=== PATIENT | female | born 1990 | race American Indian/Alaskan Native ===

== ENCOUNTER 2017-06-15 13:29 | Emergency (ER) | payer MEDICAID ==
[2017-06-15 13:45] VITALS: O2SAT 100
[2017-06-15] MEDS ORDERED: Sodium Chloride 0.9% 1,000 ML IV ONE (13:57)
[2017-06-15 14:14] LABS: BASO % 0.5 % (0.0-2.0); EOS % 0.4 % (0.0-4.0); HEMATOCRIT 37.5 % (34.0-47.0); LYMPH # 1.9 K/uL (1.0-4.3); LYMPH % 32.7 % (20.0-40.0); MEAN CELL VOLUME 86.6 fL (81.0-99.0); MEAN CORPUSCULAR HEMOGLOBIN 28.8 pg (27.0-31.0); MEAN CORPUSCULAR HGB CONC 33.3 g/dL (33.0-37.0); MEAN PLATELET VOLUME 8.9 fL (7.2-11.7); MONO # 0.4 K/uL (0.0-0.8); MONO % 7.5 % (0.0-10.0); NRBC % 0.1 % (0.0-2.0); RED CELL DISTRIBUTION WIDTH 16.4 % (11.5-14.5); WHITE BLOOD COUNT 5.8 K/uL (4.8-10.8)
[2017-06-15] MEDS ORDERED: Sodium Chloride 0.9% 1,000 ML ONE (14:18)
[2017-06-15 14:27] LABS: CHLORIDE 106 mmol/L (98-107)
[2017-06-15 14:28] LABS: POTASSIUM 3.6 mmol/L (3.6-5.2); SODIUM 143 mmol/L (132-148)
[2017-06-15 14:29] LABS: RBC URINE 842 /hpf (0-3); URINE BILIRUBIN NEGATIVE (NEGATIVE); URINE BLOOD 3+ (NEGATIVE); URINE COLOR Red (YELLOW); URINE GLUCOSE (UA) NORMAL (Normal); URINE KETONE 1+ mg/dL (NEGATIVE); URINE LEUKOCYTE ESTERASE NEG Leu/uL (Negative); URINE PROTEIN 2+ mg/dL (NEGATIVE); URINE UROBILINOGEN NORMAL mg/dL (0.2-1.0); WBC URINE 7 /hpf (0-5)
[2017-06-15 14:30] LABS: ALB/GLOB RATIO 1.1 (1.0-2.1); AST/SGOT 16 U/L (14-36); BILIRUBIN,TOTAL 0.4 mg/dL (0.2-1.3); BLOOD UREA NITROGEN 11 mg/dL (7-17); CARBON DIOXIDE 21 mmol/L (22-30); GFR AFRICAN-AMERICAN > 60; GLUCOSE,RANDOM 92 mg/dL (65-105); TOTAL PROTEIN 8.1 g/dL (6.3-8.3)
[2017-06-15 14:31] LABS: ALKALINE PHOSPHATASE 60 U/L (38-126); ALT/SGPT 22 U/L (9-52); CALCIUM 10.1 mg/dl (8.6-10.4)
--- NOTE | 2017-06-15 15:55 | US ---
HISTORY: Left pelvic pain, vaginal bleeding. COMPARISON: None available. TECHNIQUE: Real-time transabdominal pelvic ultrasound was performed. In addition a transvaginal pelvic ultrasound was necessary to better depict pelvic anatomy. FINDINGS: UTERUS: Measures 7.4 x 3.4 x 4.3 cm. Anteverted. Prominent vasculature noted about the periphery of the uterus. ENDOMETRIUM: Measures 4 mm in diameter. CERVIX: No cervical abnormality identified. RIGHT OVARY: Measures 2.9 x 1.6 x 2.6 cm. Blood flow is demonstrated. LEFT OVARY: Measures 3.2 x 1.5 x 2.7 cm. Blood flow is demonstrated. FREE FLUID: No significant free fluid noted. OTHER FINDINGS: None. IMPRESSION: Prominent vasculature noted about the periphery of the uterus.
--- NOTE | 2017-06-15 16:15 | C.PDOC ---
Time Seen by Provider: 06/15/17 13:48 Chief Complaint (Nursing): Female Genitourinary History Per: Patient Onset/Duration Of Symptoms: Days (about 2 weeks), Waxing/Waning Current Symptoms Are (Timing): Still Present Severity: Moderate Location Of Pain/Discomfort: LLQ, Suprapubic Quality Of Discomfort: "Pain" Exacerbating Factors: None Alleviating Factors: None Additional History Per: Prior Records Abnormal Vaginal Bleeding: Yes Past Medical History Reviewed: Historical Data, Nursing Documentation, Vital Signs Vital Signs: Last Vital Signs Temp 99.7 F H 06/15/17 13:35 Pulse 96 H 06/15/17 13:35 Resp 18 06/15/17 13:35 BP 105/62 06/15/17 13:35 Pulse Ox 100 06/15/17 13:35 - Medical History PMH: Anxiety, Asthma, Bipolar Disorder, Depression, Personality Disorder, Post Traumatic Stress Disorder Surgical History: No Surg Hx Family History: States: Unknown Family Hx - Social History Hx Tobacco Use: Yes Hx Alcohol Use: No Hx Substance Use: Yes ("weed use on occasions") - Immunization History Hx Tetanus Toxoid Vaccination: No Hx Influenza Vaccination: Yes (2014) Hx Pneumococcal Vaccination: No Review Of Systems Except As Marked, All Systems Reviewed And Found Negative. Constitutional: Negative for: Fever, Weakness Cardiovascular: Negative for: Chest Pain Respiratory: Negative for: Shortness of Breath Gastrointestinal: Negative for: Vomiting, Diarrhea Genitourinary: Positive for: Vaginal Bleeding, Pelvic Pain. Negative for: Dysuria Musculoskeletal: Positive for: Back Pain. Negative for: Neck Pain Skin: Negative for: Rash Neurological: Negative for: Weakness, Numbness Psych: Positive for: Anxiety. Negative for: Psychosis, Suicidal ideation Physical Exam - Physical Exam Appears: Non-toxic, No Acute Distress Skin: Normal Color, Warm, Dry, No Rash Head: Atraumatic, Normacephalic Eye(s): bilateral: Normal Inspection, PERRL, EOMI Neck: Normal ROM, Supple Cardiovascular: Rhythm Regular Respiratory: Normal Breath Sounds, No Accessory Muscle Use Gastrointestinal/Abdominal: Soft, Tenderness (LLQ), No Guarding, No Rebound Extremity: Normal ROM Neurological/Psych: Oriented x3, Normal Motor, Normal Sensation ED Course And Treatment - Laboratory Results Result Diagrams: 06/15/17 14:10 06/15/17 14:10 Lab Interpretation: No Acute Changes Urine POC: Negative O2 Sat by Pulse Oximetry: 100 Pulse Ox Interpretation: Normal - CT Scan/US Pelvic US Other Rad Studies (CT/US): Read By Radiologist, Radiology Report Reviewed CT/US Interpretation: IMPRESSION: Prominent vasculature noted about the periphery of the uterus. Progress - Interventions Interventions:: Observation, Intravenous fluid - Medications Administered Intravenous: NSAID - Data Reviewed Data Reviewed: Lab, Diagnostic imaging, Old records - Patient Status Patient status: Mostly improved - Continuity of Care Discussed patient case with:: Patient, Family-HIPPA compliant, ED Nurse - Patient Plan Patient Plan: Discharge, F/U with PCP Disposition Counseled Patient/Family Regarding: Studies Performed, Diagnosis, Need For Followup, Rx Given - Disposition Disposition: HOME/ ROUTINE Disposition Time: 16:16 Condition: IMPROVED Additional Instructions: Follow up with your Automotive Technician Instructor within 1-2 weeks for further evaluation and treatment. Return to the ER if you develop fever, vomiting, dizziness, worsening of symptoms or if you have any other concerns. Prescriptions: Ibuprofen [Motrin Tab] 600 mg PO TID PRN #30 tab PRN Reason: Pain, Moderate (4-7) MedroxyPROGESTERone [Provera] 1 tab PO DAILY #10 tab Instructions: Dysfunctional Uterine Bleeding (ED) Forms: [employer] (Faroese) - Clinical Impression Clinical Impression: DUB (dysfunctional uterine bleeding)
[2017-06-15 16:27] VITALS: BP 112/74; PULSE 68; RESP 20; TEMP 98.5
== END 2017-06-15 16:28 | disposition home or self-care (01) ==
LOC: C.ER 13:29
DX: N93.8 Other specified abnormal uterine and vaginal bleeding (principal)
CPT/HCPCS: 76830; 76856; 80053; 81001; 83690; 84702; 84703; 85025; 96361; 96374; 99284; J1885; J7040

== ENCOUNTER 2018-09-27 09:49 | Emergency (ER) | payer MEDICAID, OTHER ==
[2018-09-27 09:50] VITALS: BMI 23.9
[2018-09-27 09:58] VITALS: RESP 18; O2SAT 100
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
[2018-09-27 10:57] LABS: EOS % 0.6 % (0.0-4.0); HEMOGLOBIN 12.8 g/dL (11.0-16.0); LYMPH # 2.1 K/uL (1.0-4.3); LYMPH % 45.6 % (20.0-40.0); MEAN CELL VOLUME 91.9 fL (81.0-99.0); MEAN CORPUSCULAR HEMOGLOBIN 30.5 pg (27.0-31.0); MEAN CORPUSCULAR HGB CONC 33.2 g/dL (33.0-37.0); MEAN PLATELET VOLUME 9.6 fL (7.2-11.7); MONO # 0.3 K/uL (0.0-0.8); MONO % 6.7 % (0.0-10.0); NEUT # 2.1 K/uL (1.8-7.0); NEUT % 46.1 % (50.0-75.0); NRBC % 0.1 % (0.0-2.0); RBC 4.2 Mil/uL (3.80-5.20); RED CELL DISTRIBUTION WIDTH 14.9 % (11.5-14.5); WHITE BLOOD COUNT 4.5 K/uL (4.8-10.8)
[2018-09-27 11:01] LABS: SQUAMOUS EPITHIAL 5 /hpf (0-5); URINE BACTERIA RARE (<OCC); URINE BILIRUBIN NEGATIVE (NEGATIVE); URINE BLOOD NEGATIVE (NEGATIVE); URINE CLARITY Clear (Clear); URINE COLOR Yellow (YELLOW); URINE GLUCOSE (UA) NORMAL (Normal); URINE LEUKOCYTE ESTERASE NEG Leu/uL (Negative); URINE PROTEIN NEGATIVE (NEGATIVE); URINE UROBILINOGEN NORMAL mg/dL (0.2-1.0)
[2018-09-27 11:11] LABS: ACETAMINOPHEN < 10.0 ug/mL (10.0-30.0); SALICYLATE 3.5 mg/dL 1
[2018-09-27 11:16] LABS: ALB/GLOB RATIO 1.4 (1.0-2.1); ALBUMIN 4.8 g/dL (3.5-5.0); ALT/SGPT 23 U/L (9-52); AST/SGOT 21 U/L (14-36); BLOOD UREA NITROGEN 10 mg/dL (7-17); CALCIUM 9.6 mg/dl (8.6-10.4); GFR NON-AFRICAN AMERICAN > 60
[2018-09-27 11:22] LABS: BARBITURATES, UR NEGATIVE (NEGATIVE); BENZODIAZEPINES, UR NEGATIVE (NEGATIVE); OPIATES, UR NEGATIVE (NEGATIVE); PHENCYCLIDINE, UR NEGATIVE (NEGATIVE)
[2018-09-27 12:06] VITALS: BP 110/70; PULSE 62; TEMP 98.5
--- NOTE | 2018-09-27 14:39 | RAD ---
Date of service: 09/27/2018 HISTORY: Detox COMPARISON: No prior. TECHNIQUE: Chest PA and lateral FINDINGS: LINES AND TUBES: None. LUNG AND PLEURA: The lungs are well inflated and clear. No pleural effusion or pneumothorax. HEART AND MEDIASTINUM: The heart is not enlarged. No aortic atherosclerotic calcification present. The hilar and mediastinal contours are within normal limits. SKELETAL STRUCTURES: The bony structures are within normal limits for the patient's age. VISUALIZED UPPER ABDOMEN: Normal. OTHER FINDINGS: None. IMPRESSION: No active pulmonary disease.
--- NOTE | 2018-09-28 23:58 | CARD ---
APPROVED REPORT Date of service: 09/27/2018 EKG Measurement Heart [id number] <Conclusion> Normal sinus rhythm with sinus arrhythmia Nonspecific T wave abnormality Abnormal ECG
== END 2018-09-27 12:21 | disposition home or self-care (01) ==
LOC: C.ER 09:49
DX: F41.9 Anxiety disorder, unspecified (principal); Z72.0 Tobacco use

== ENCOUNTER 2018-10-31 22:09 | Emergency (ER) | payer OTHER ==
[2018-10-31 22:10] VITALS: BMI 23.9
[2018-10-31 22:12] VITALS: TEMP 99.2
[2018-10-31] MEDS ORDERED: Sodium Chloride 0.9% 1,000 ML IV ONE (23:21)
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
[2018-10-31] MEDS ORDERED: Sodium Chloride 0.9% 1,000 ML ONE (23:57)
[2018-11-01 00:24] LABS: BASO % 0.3 % (0.0-2.0); EOS % 0.1 % (0.0-4.0); LYMPH # 2.2 K/uL (1.0-4.3); LYMPH % 34.3 % (20.0-40.0); MEAN CELL VOLUME 91.2 fL (81.0-99.0); MEAN CORPUSCULAR HGB CONC 32.9 g/dL (33.0-37.0); MEAN PLATELET VOLUME 9.3 fL (7.2-11.7); MONO # 0.3 K/uL (0.0-0.8); MONO % 4.9 % (0.0-10.0); NEUT # 3.8 K/uL (1.8-7.0); NEUT % 60.4 % (50.0-75.0); RBC 3.99 Mil/uL (3.80-5.20); RED CELL DISTRIBUTION WIDTH 14.2 % (11.5-14.5); WHITE BLOOD COUNT 6.3 K/uL (4.8-10.8)
[2018-11-01 00:40] LABS: ALB/GLOB RATIO 1.5 (1.0-2.1); ALBUMIN 4.8 g/dL (3.5-5.0); ALT/SGPT 32 U/L (9-52); AST/SGOT 22 U/L (14-36); BLOOD UREA NITROGEN 12 mg/dL (7-17); CALCIUM 9.4 mg/dl (8.6-10.4); GFR NON-AFRICAN AMERICAN > 60
[2018-11-01 00:41] LABS: SQUAMOUS EPITHIAL 3 /hpf (0-5); URINE BILIRUBIN NEGATIVE (NEGATIVE); URINE BLOOD NEGATIVE (NEGATIVE); URINE CLARITY Clear (Clear); URINE COLOR Yellow (YELLOW); URINE GLUCOSE (UA) NORMAL (Normal); URINE LEUKOCYTE ESTERASE NEG Leu/uL (Negative); URINE PROTEIN NEGATIVE (NEGATIVE); URINE UROBILINOGEN NORMAL mg/dL (0.2-1.0)
[2018-11-01 01:24] LABS: BARBITURATES, UR NEGATIVE (NEGATIVE); BENZODIAZEPINES, UR NEGATIVE (NEGATIVE); OPIATES, UR NEGATIVE (NEGATIVE); PHENCYCLIDINE, UR NEGATIVE (NEGATIVE)
[2018-11-01 02:36] VITALS: BP 110/70; PULSE 70; RESP 14; O2SAT 97
--- NOTE | 2018-11-01 06:56 | CT ---
Date of service: 11/01/2018 PROCEDURE: CT HEAD WITHOUT CONTRAST. HISTORY: Headache. COMPARISON: None available. TECHNIQUE: Axial computed tomography images were obtained through the head/brain without intravenous contrast. Radiation dose: Total exam DLP = 1062.11 mGy-cm. This CT exam was performed using one or more of the following dose reduction techniques: Automated exposure control, adjustment of the mA and/or kV according to patient size, and/or use of iterative reconstruction technique. FINDINGS: HEMORRHAGE: No intracranial hemorrhage. BRAIN: No mass effect or edema. No atrophy or chronic microvascular ischemic changes. VENTRICLES: Unremarkable. No hydrocephalus. CALVARIUM: Unremarkable. PARANASAL SINUSES: Unremarkable as visualized. No significant inflammatory changes. MASTOID AIR CELLS: Unremarkable as visualized. No inflammatory changes. OTHER FINDINGS: None. IMPRESSION: No acute intracranial abnormality. If symptoms persists, consider correlation with MRI. A preliminary report was generated at 1:25 a.m. on 11/01/[address] Arley Quan from [employer].
== END 2018-11-01 02:20 | disposition home or self-care (01) ==
LOC: C.ER 22:09
DX: R51 Headache (principal); Z72.0 Tobacco use
CPT/HCPCS: 70450; 80053; 80320; 80324; 80345; 80346; 80349; 80353; 80358; 80361; 81001; 81025; 83992; 85025; 96374; 96375; 99285; J1885; J2765; J7030

== ENCOUNTER 2018-11-21 13:36 | Emergency (ER) | payer OTHER ==
[2018-11-21 13:37] VITALS: BMI 24.0
[2018-11-21 13:39] VITALS: BP 112/72; PULSE 84; TEMP 98.6; O2SAT 100
[2018-11-21 14:21] VITALS: RESP 18
--- NOTE | 2018-11-21 14:57 | C.PDOC ---
History Of Present Illness 28 year old female w/PMHx bipolar, PTSD, anxiety, is brought to the ED by ambulance for evaluation of upper back pain, chest pain, bilateral shoulder pain that gradually developed after she received a depo shot yesterday, "have really bad reaction to Deposhot". Patient reports she has been applying Bengay cream to the areas with some relief. Over the past few hours, patient developed shortness of breath and states her back pain became worse. Pt denies recent illness, fever, chills, headache, dizziness, visual changes, neck pain, dyspnea, palpitations, diaphoresis, denies extremity numbness/weakness, denies previous history of cardiac or lung disease. AT present time, appears slightly anxious. Time Seen by Provider: 11/21/18 13:42 Chief Complaint (Nursing): Medical Clearance History Per: Patient History/Exam Limitations: no limitations Onset/Duration Of Symptoms: Hrs, Gradual Current Symptoms Are (Timing): Worse Additional History Per: Patient Past Medical History Reviewed: Historical Data, Nursing Documentation, Vital Signs Vital Signs: Last Vital Signs Temp 98.6 F 11/21/18 13:39 Pulse 84 11/21/18 13:39 Resp 18 11/21/18 14:17 BP 112/72 11/21/18 13:39 Pulse Ox 100 11/21/18 13:39 - Medical History PMH: Anxiety, Asthma, Bipolar Disorder, Depression, Personality Disorder, Post Traumatic Stress Disorder Denies: Diabetes, Hepatitis, HIV, HTN, Chronic Kidney Disease, Seizures, Se xually Transmitted Disease Surgical History: No Surg Hx Family History: States: Unknown Family Hx - Social History Hx Tobacco Use: Yes Hx Alcohol Use: No Hx Substance Use: Yes (DENIES 11/21/18) - Immunization History Hx Tetanus Toxoid Vaccination: No Hx Influenza Vaccination: Yes (2014) Hx Pneumococcal Vaccination: No Review Of Systems Constitutional: Negative for: Fever, Chills, Other (diaphoresis ) Cardiovascular: Positive for: Chest Pain. Negative for: Palpitations Respiratory: Positive for: Shortness of Breath Musculoskeletal: Positive for: Shoulder Pain (bilateral ), Back Pain (upper) Neurological: Negative for: Weakness, Numbness Physical Exam - Physical Exam Appears: Well, Non-toxic, No Acute Distress Skin: Normal Color, Warm, Dry Head: Normacephalic Eye(s): bilateral: PERRL Oral Mucosa: Moist Neck: Trachea Midline, Supple Chest: Symmetrical, No Deformity, Tenderness (diffuse, to anterior chest wall ) Cardiovascular: Rhythm Regular, No Murmur, No JVD, Other ((-) carotid bruits B/L) Respiratory: No Decreased Breath Sounds, No Accessory Muscle Use, No Rales, No Rhonchi, No Stridor, No Wheezing Gastrointestinal/Abdominal: Soft, No Tenderness, No Distention, No Guarding Back: No Vertebral Tenderness, No Paraspinal Tenderness, Other (reproducible tenderness to bilateral periscapular area ) Extremity: Normal ROM, No Pedal Edema, Capillary Refill (less than 2 seconds ), No Swelling Neurological/Psych: Oriented x3, Normal Speech, Normal Cognition, Normal Motor, Normal Sensation, Normal Reflexes ED Course And Treatment ECG: Interpreted By Me, Viewed By Me ECG Rhythm: Sinus Rhythm Interpretation Of ECG: Normal Sinus Rhythm at rate 65bpm. Rate From EC O2 Sat by Pulse Oximetry: 100 (on RA ) Pulse Ox Interpretation: Normal Progress Note: CXR and EKG ordered and reviewed. CXR results are unremarkable. Valium PO given. On re-eval, pt reports " feels much better". Pt is afebrile, henodynamical stable. non-toxic. PulseOx 100% RA. ENT: no acute finidngs. uvual midline, no edema. neck: Supple, (-) carotid bruits B/L, (-) JVD. Lungs: CTA B/L, BS equal B/L. CVS: (+)S1S2, reg. ABd: benign, (-) guaridng, (-) rebound. EKG, CXR review and appears without acute abnormalities. Pt has lcinical findings c/w diffuse upper chest/ upper back muscle pain s/p Depo shot. Pt advised. ref. to f/u with PMD, FINE WIRE DRAWER, Card in 2-3 days for re-eval. return to ED at any time if any worsening or new changes. Pt understand and stable for discharge now. Disposition Counseled Patient/Family Regarding: Studies Performed, Diagnosis, Need For Followup - Disposition Referrals: [facility] [Outside] Disposition: HOME/ ROUTINE Disposition Time: 14:50 Condition: STABLE Additional Instructions: LIght duty Follow up with PMD, FINE WIRE DRAWER In 2-3 days for re-evaluation. return if any new changes. Instructions: Muscle Strain (DC), Chest Pain (DC) Forms: [employer] (Serbian) - Clinical Impression Clinical Impression: Upper back pain, Chest pain - PA / OCC MED PHYSICIAN / Resident Statement MD/DO has reviewed & agrees with the documentation as recorded. - Scribe Statement The provider has reviewed the documentation as recorded by the Scribe (Hailey Aparicio) All medical record entries made by the Scribe were at my direction and personally dictated by me. I have reviewed the chart and agree that the record accurately reflects my personal performance of the history, physical exam, medical decision making, and the department course for this patient. I have also personally directed, reviewed, and agree with the discharge instructions and disposition.
--- NOTE | 2018-11-22 10:57 | RAD ---
HISTORY: Cough COMPARISON: None available. TECHNIQUE: Chest PA and lateral FINDINGS: LUNGS: No focal consolidation. Please note that chest x-ray has limited sensitivity for the detection of pulmonary masses. PLEURA: No significant pleural effusion identified. No definite pneumothorax . CARDIOVASCULAR: Heart size appears within normal limits. No atherosclerotic calcification present. OSSEOUS STRUCTURES: No acute osseous abnormality identified. VISUALIZED UPPER ABDOMEN: Unremarkable. OTHER FINDINGS: None. IMPRESSION: No focal consolidation.
--- NOTE | 2018-11-26 23:42 | CARD ---
APPROVED REPORT Date of service: 11/21/2018 EKG Measurement Heart [id number] [id number] <Conclusion> Normal sinus rhythm with sinus arrhythmia Nonspecific ST and T wave abnormality Abnormal ECG
== END 2018-11-21 15:16 | disposition home or self-care (01) ==
LOC: C.ER 13:36
DX: M54.89 Other dorsalgia (principal); R07.9 Chest pain, unspecified

== ENCOUNTER 2018-12-22 15:11 | Emergency (ER) | payer OTHER ==
[2018-12-22 15:26] VITALS: TEMP 98.2
[2018-12-22 15:28] VITALS: BMI 23.9
[2018-12-22] MEDS ORDERED: Iodixanol 320 MG/ML 100 ML BOTTLE IV ONE (15:47)
--- NOTE | 2018-12-22 15:52 | RAD ---
Date of service: 12/22/2018 HISTORY: sob COMPARISON: Comparison chest dated 11/21/2018. TECHNIQUE: Chest PA and lateral FINDINGS: LUNGS: No active pulmonary disease. PLEURA: No significant pleural effusion identified. No pneumothorax apparent. CARDIOVASCULAR: No aortic atherosclerotic calcification present. Normal cardiac size. No pulmonary vascular congestion. OSSEOUS STRUCTURES: No significant abnormalities. VISUALIZED UPPER ABDOMEN: Normal. OTHER FINDINGS: None. IMPRESSION: No active disease.
[2018-12-22 16:02] LABS: BASO # 0.1 K/uL (0.0-0.2); BASO % 1.1 % (0.0-2.0); EOS % 0.3 % (0.0-4.0); HEMOGLOBIN 11.9 g/dL (11.0-16.0); LYMPH # 2.6 K/uL (1.0-4.3); LYMPH % 41.9 % (20.0-40.0); MEAN CELL VOLUME 88.2 fL (81.0-99.0); MEAN CORPUSCULAR HEMOGLOBIN 29.6 pg (27.0-31.0); MEAN CORPUSCULAR HGB CONC 33.5 g/dL (33.0-37.0); MEAN PLATELET VOLUME 8.7 fL (7.2-11.7); MONO # 0.5 K/uL (0.0-0.8); MONO % 8.2 % (0.0-10.0); NEUT % 48.5 % (50.0-75.0); NRBC % 0.1 % (0.0-2.0); RBC 4.02 Mil/uL (3.80-5.20); RED CELL DISTRIBUTION WIDTH 14.8 % (11.5-14.5); WHITE BLOOD COUNT 6.1 K/uL (4.8-10.8)
[2018-12-22 16:08] LABS: INR 1.3; PROTHROMBIN TIME 13.9 SECONDS (9.7-12.2)
[2018-12-22 16:13] LABS: ALB/GLOB RATIO 1.6 (1.0-2.1); ALBUMIN 4.8 g/dL (3.5-5.0); BLOOD UREA NITROGEN 17 mg/dL (7-17); CALCIUM 9.7 mg/dl (8.6-10.4); GFR NON-AFRICAN AMERICAN > 60; LIPASE 51 U/L (23-300)
[2018-12-22 16:15] LABS: ALT/SGPT 32 U/L (9-52); AST/SGOT 24 U/L (14-36)
--- NOTE | 2018-12-22 17:10 | C.PDOC ---
History Of Present Illness 28 y/o female pt presents to the ER c/o intermittent SOB for x2 weeks. Pt went to see her PMD and her PMD recommended her to go to [facility]. Pt did not follow and decided to come here today. Pt admits to recent episodes of anxiety attacks and pt assume this is another anxiety attack but is still concerned. Her primary gave her hydroxyzine for anxiety but she states it does not help. She adds that her chest pain worsens when she eats food which then decreases her appetite. Time Seen by Provider: 12/22/18 15:20 Chief Complaint (Nursing): Chest Pain History Per: Patient History/Exam Limitations: no limitations Onset/Duration Of Symptoms: Days (x2 weeks) Current Symptoms Are (Timing): Still Present Past Medical History Reviewed: Historical Data, Nursing Documentation, Vital Signs Vital Signs: Last Vital Signs Temp 98.2 F 12/22/18 15:25 Pulse 74 12/22/18 15:25 Resp 20 12/22/18 15:25 BP 115/77 12/22/18 15:25 Pulse Ox 98 12/22/18 15:25 - Medical History PMH: Anxiety, Asthma (NO meds), Bipolar Disorder, Depression, Personality Disorder, Post Traumatic Stress Disorder Family History: States: Unknown Family Hx - Social History Hx Tobacco Use: Yes Hx Alcohol Use: No Hx Substance Use: Yes (DENIES 11/21/18) - Immunization History Hx Tetanus Toxoid Vaccination: No Hx Influenza Vaccination: No (2014) Hx Pneumococcal Vaccination: No Review Of Systems Constitutional: Negative for: Fever, Chills, Weakness Eyes: Negative for: Redness, Other (scleral icterus ) ENT: Negative for: Mouth Swelling Cardiovascular: Positive for: Chest Pain Respiratory: Positive for: Shortness of Breath. Negative for: Cough Gastrointestinal: Positive for: Abdominal Pain (upper abdomen). Negative for: Nausea, Vomiting, Diarrhea Genitourinary: Negative for: Dysuria, Hematuria Musculoskeletal: Negative for: Back Pain Skin: Negative for: Rash Neurological: Negative for: Weakness, Numbness, Dizziness Psych: Positive for: Anxiety Physical Exam - Physical Exam Appears: Non-toxic, In Acute Distress Skin: Normal Color, Warm, Dry, No Diaphoretic, No Rash Head: Atraumatic, Normacephalic Eye(s): bilateral: Normal Inspection (no scleral icterus ), PERRL, EOMI Ear(s): Bilateral: Normal (no drainage ) Nose: Normal Oral Mucosa: Moist Throat: Normal (no swelling or injection ), No Exudate, Other (airway patent ) Neck: Normal ROM, Supple Chest: Symmetrical Respiratory: Accessory Muscle Use, Other (good air exchange ) Gastrointestinal/Abdominal: Soft, Tenderness (mild epigastric ), No Distention, No Guarding Back: No CVA Tenderness, Other (ambulating with steady upright gait ) Extremity: Normal ROM Extremity: Bilateral: Atraumatic Pulses: Left Radial: Normal (2+), Right Radial: Normal (2+) Neurological/Psych: Oriented x3, Other (cranial nerves grossly intact ) ED Course And Treatment - Laboratory Results Result Diagrams: 12/22/18 15:59 12/22/18 15:59 Lab Results: PT 13.9 SECONDS (9.7-12.2) H 12/22/18 15:59 INR 1.3 12/22/18 15:59 Total Bilirubin 0.6 mg/dL (0.2-1.3) 12/22/18 15:59 AST 24 U/L (14-36) 12/22/18 15:59 ALT 32 U/L (9-52) 12/22/18 15:59 Alkaline Phosphatase 71 U/L (38-126) 12/22/18 15:59 Total Protein 7.9 g/dL (6.3-8.3) 12/22/18 15:59 Albumin 4.8 g/dL (3.5-5.0) 12/22/18 15:59 Globulin 3.1 gm/dL (2.2-3.9) 12/22/18 15:59 Albumin/Globulin Ratio 1.6 (1.0-2.1) 12/22/18 15:59 Lipase 51 U/L (23-300) 12/22/18 15:59 O2 Sat by Pulse Oximetry: 98 (Ra) Pulse Ox Interpretation: Normal - CT Scan/US angio chest Other Rad Studies (CT/US): Read By Radiologist, Radiology Report Reviewed CT/US Interpretation: Name:MICHELL KOHLI Exam Date:Dec 22, 2018 6:41:40 PM EST. Modality Type:CT\SR. Description:CTA CHEST FOR PE. Gender:F Laterality:Not applicable. :91 Referring Physician:Steven Reece, PAC. EXAM: CTA Chest with Intravenous Contrast for Pulmonary Embolism. CLINICAL HISTORY: SOB, r/o PE. TECHNIQUE: Axial CTA images of the chest with intravenous contrast using a pulmonary embolism protocol. Reconstructed images were created and reviewed. 0.00 mGy-cm. CONTRAST: With; 100MLS VISI 320 was administered without incident. COMPARISON: None provided. FINDINGS: PULMONARY ARTERIES. No evidence of central or segmental pulmonary embolism is seen. AORTA. There is no evidence for aneurysm or dissection of the thoracic aorta. LUNGS. The lungs appear clear. PLEURAL SPACES. No pleural effusion seen. No pneumothorax evident. HEART. Normal heart size. No significant pericardial effusion. LYMPH NODES. No lymphadenopathy is evident. BONES. No focal osseous abnormality or acute fracture. UPPER ABDOMEN. Images of the upper abdomen are unremarkable. IMPRESSION: Unremarkable pulmonary embolism protocol CTA of the chest. Progress Note: patient reports feeling better, she requested to take the oxygen mask off. Medical Decision Making Medical Decision Making: Plans: -- chem labs -- blood work -- CXR -- CT angio -- EKG This patient appears to have worsening anxiety, triggered by gerd/heartburn. She states she no longer feels SOB at this time. She has been counselled to follow up with her PCP and relay that she needs something more specific for anxiety since it is worsening. 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 - Scribe Statement The provider has reviewed the documentation as recorded by the Phoenix Morgan Do All medical record entries made by the Scribrichardson were at my direction and personally dictated by me. I have reviewed the chart and agree that the record accurately reflects my personal performance of the history, physical exam, medical decision making, and the department course for this patient. I have also personally directed, reviewed, and agree with the discharge instructions and disposition.
[2018-12-22 19:56] VITALS: BP 99/58; PULSE 88; RESP 16
[2018-12-22 19:58] VITALS: O2SAT 98
--- NOTE | 2018-12-23 12:14 | CT ---
Date of service: 12/22/2018 PROCEDURE: CT Chest with contrast (Pulmonary Angiogram) HISTORY: Rule out PE COMPARISON: None available. TECHNIQUE: Axial computed tomography images were obtained of the chest in the pulmonary arterial phase of enhancement. Coronal and sagittal reformatted images were created and reviewed. Intravenous contrast dose: Radiation dose: Total exam DLP = 439.73 mGy-cm. This CT exam was performed using one or more of the following dose reduction techniques: Automated exposure control, adjustment of the mA and/or kV according to patient size, and/or use of iterative reconstruction technique. FINDINGS: PULMONARY ARTERIES: Unremarkable. No pulmonary embolism. Pulmonary trunk measures approximately 2.3 cm. AORTA: No acute findings. No thoracic aortic aneurysm. Ascending thoracic aorta measures approximately 2.5 cm. Descending thoracic aorta measures approximately 1.8 cm. No aortic atherosclerotic calcification or mural plaque present. LUNGS: Unremarkable. No nodule, mass or pulmonary consolidation. PLEURAL SPACES: Unremarkable. No effusion or pneumothorax. HEART: No significant pericardial effusion. LYMPH NODES: No lymphadenopathy. Trachea midline and patent with no large central endoluminal lesions. There is a small hiatal hernia. The BONES, CHEST WALL: Unremarkable. No fracture or destructive lesion OTHER FINDINGS: Unremarkable. IMPRESSION: No evidence of acute central pulmonary embolus.
--- NOTE | 2018-12-24 14:21 | CARD ---
APPROVED REPORT Date of service: 12/22/2018 EKG Measurement Heart [id number] <Conclusion> Sinus rhythm with marked sinus arrhythmia Nonspecific T wave abnormality Abnormal ECG
== END 2018-12-22 20:16 | disposition home or self-care (01) ==
LOC: C.ER 15:11
DX: F41.0 Panic disorder [episodic paroxysmal anxiety] (principal); K21.9 Gastro-esophageal reflux disease without esophagitis
CPT/HCPCS: 71046; 71275; 80053; 81025; 83690; 85025; 85610; 93005; 99285; Q9967

== ENCOUNTER 2018-12-30 21:37 | Emergency (ER) | payer OTHER ==
[2018-12-30 21:37] VITALS: BMI 23.9
[2018-12-30] MEDS ORDERED: Sodium Chloride 0.9% 1,000 ML IV ONE (22:20)
[2018-12-30] MEDS ORDERED: Sucralfate 1 gm/10 ml Oral Susp UD PO STA (22:24)
[2018-12-30 22:49] LABS: BASO % 0.7 % (0.0-2.0); EOS % 0.9 % (0.0-4.0); HEMOGLOBIN 11.4 g/dL (11.0-16.0); LYMPH # 2.7 K/uL (1.0-4.3); LYMPH % 47.4 % (20.0-40.0); MEAN CELL VOLUME 89.9 fL (81.0-99.0); MEAN CORPUSCULAR HEMOGLOBIN 30.1 pg (27.0-31.0); MEAN CORPUSCULAR HGB CONC 33.5 g/dL (33.0-37.0); MEAN PLATELET VOLUME 8.9 fL (7.2-11.7); MONO # 0.5 K/uL (0.0-0.8); MONO % 8.4 % (0.0-10.0); NEUT # 2.4 K/uL (1.8-7.0); NEUT % 42.6 % (50.0-75.0); NRBC % 0.1 % (0.0-2.0); RBC 3.79 Mil/uL (3.80-5.20); RED CELL DISTRIBUTION WIDTH 15.3 % (11.5-14.5); WHITE BLOOD COUNT 5.7 K/uL (4.8-10.8)
[2018-12-30] MEDS ORDERED: Sodium Chloride 0.9% 1,000 ML ONE (22:52)
[2018-12-30 23:04] LABS: ALB/GLOB RATIO 1.6 (1.0-2.1); ALBUMIN 4.7 g/dL (3.5-5.0); ALT/SGPT 20 U/L (9-52); AST/SGOT 21 U/L (14-36); BLOOD UREA NITROGEN 14 mg/dL (7-17); CALCIUM 9.5 mg/dl (8.6-10.4); GFR NON-AFRICAN AMERICAN > 60; LIPASE 54 U/L (23-300)
--- NOTE | 2018-12-30 23:06 | C.PDOC ---
History Of Present Illness 28 year old female presents to the ED c/o difficulty breathing and difficulty eating for the past 2 weeks. Patient states she feels congestion to the left side of her face. Patient denies fever, chills, nausea, vomit, headache, CP, S OB, palpitations, rash. Chief Complaint (Nursing): Abdominal Pain History Per: Patient History/Exam Limitations: no limitations Onset/Duration Of Symptoms: Days Current Symptoms Are (Timing): Still Present Location Of Pain/Discomfort: Epigastric Associated Symptoms: Loss Of Appetite. denies: Nausea, Vomiting, Diarrhea, Ur inary Symptoms Recent travel outside of the [place]: No Additional History Per: Patient Abnormal Vaginal Bleeding: No Past Medical History Reviewed: Historical Data, Nursing Documentation, Vital Signs Vital Signs: Last Vital Signs Temp 98.4 F 12/30/18 21:52 Pulse 74 12/30/18 21:52 Resp 20 12/30/18 22:00 BP 113/74 12/30/18 21:52 Pulse Ox 99 12/30/18 22:00 - Medical History PMH: Anxiety, Asthma (NO meds), Bipolar Disorder, Depression, Personality Disorder, Post Traumatic Stress Disorder Denies: HIV, HTN, Chronic Kidney Disease, Seizures, Sexually Transmitted Disease Surgical History: No Surg Hx Family History: States: Unknown Family Hx - Social History Hx Tobacco Use: Yes Hx Alcohol Use: No Hx Substance Use: No (DENIES 11/21/18) - Immunization History Hx Tetanus Toxoid Vaccination: No Hx Influenza Vaccination: No (2014) Hx Pneumococcal Vaccination: No Review Of Systems Constitutional: Negative for: Fever, Chills Cardiovascular: Negative for: Chest Pain, Palpitations Respiratory: Positive for: Shortness of Breath Gastrointestinal: Negative for: Nausea, Vomiting, Abdominal Pain Skin: Negative for: Rash Neurological: Negative for: Weakness, Numbness Physical Exam - Physical Exam Appears: Non-toxic, No Acute Distress Skin: Normal Color, Warm, Dry Head: Atraumatic, Normacephalic Eye(s): bilateral: Normal Inspection Oral Mucosa: Moist Neck: Normal ROM, Supple Chest: Symmetrical Cardiovascular: Rhythm Regular Respiratory: Normal Breath Sounds, No Rales, No Rhonchi, No Wheezing Gastrointestinal/Abdominal: Soft, Tenderness (epigastric), No Guarding, No Rebound Extremity: Normal ROM, No Tenderness, No Swelling Neurological/Psych: Oriented x3, Normal Speech, Normal Cognition Gait: Steady ED Course And Treatment - Laboratory Results Result Diagrams: 12/30/18 22:46 12/30/18 22:46 Lab Results: Total Bilirubin 0.6 mg/dL (0.2-1.3) 12/30/18 22:46 AST 21 U/L (14-36) 12/30/18 22:46 ALT 20 U/L (9-52) 12/30/18 22:46 Alkaline Phosphatase 82 U/L (38-126) 12/30/18 22:46 Total Protein 7.6 g/dL (6.3-8.3) 12/30/18 22:46 Albumin 4.7 g/dL (3.5-5.0) 12/30/18 22:46 Globulin 2.9 gm/dL (2.2-3.9) 12/30/18 22:46 Albumin/Globulin Ratio 1.6 (1.0-2.1) 12/30/18 22:46 Lipase 54 U/L (23-300) 12/30/18 22:46 ECG: Interpreted By Me, Viewed By Me ECG Rhythm: Sinus Rhythm, Nonspecific Changes ECG Interpretation: No Acute Changes, Abnormal Interpretation Of ECG: NSR, nonspc ST-T changes, no acute change, abnormal tracings. Rate From EC O2 Sat by Pulse Oximetry: 99 (On RA) Pulse Ox Interpretation: Normal - Radiology CXR: Interpreted by Me, Viewed By Me CXR Interpretation: Yes: No Acute Disease, Other (normal chest film). No: Infiltrates Medical Decision Making Medical Decision Making: Plan: * CT abd/pelvis * EKG * Labs * Carafate 1 gm PO * Protonix 40 mg IVP * IV fluids * UA Disposition Counseled Patient/Family Regarding: Diagnosis - Disposition Referrals: [facility] [Outside] Disposition: HOME/ ROUTINE Disposition Time: 01:50 Condition: STABLE Prescriptions: Amoxicillin/Clavulanate [Augmentin 875 MG-125 MG] 1 tab PO BID #20 tab Pantoprazole Sodium [Protonix] 40 mg PO DAILY #20 ect Sucralfate [Carafate] 1 gm PO BID #30 tab Instructions: Acid Reflux (Gastroesophageal Reflux Disease), Adult (DC), Sinusitis, Adult (DC) Forms: [employer] (Spanish) - POA Present On Arrival: None - Clinical Impression Clinical Impression: GERD with esophagitis, Sinusitis - Scribe Statement The provider has reviewed the documentation as recorded by the Scribe Spencer Velazquez All medical record entries made by the Scribe were at my direction and personally dictated by me. I have reviewed the chart and agree that the record accurately reflects my personal performance of the history, physical exam, medical decision making, and the department course for this patient. I have also personally directed, reviewed, and agree with the discharge instructions and d isposition.
[2018-12-31 00:38] LABS: HCG,QUALITATIVE URINE NEGATIVE (NEGATIVE)
[2018-12-31 00:45] LABS: SQUAMOUS EPITHIAL 6 /hpf (0-5); URINE BILIRUBIN NEGATIVE (NEGATIVE); URINE BLOOD 3+ (NEGATIVE); URINE CLARITY Clear (Clear); URINE COLOR Yellow (YELLOW); URINE GLUCOSE (UA) NORMAL (Normal); URINE LEUKOCYTE ESTERASE NEG Leu/uL (Negative); URINE PROTEIN NEGATIVE (NEGATIVE); URINE UROBILINOGEN NORMAL mg/dL (0.2-1.0)
[2018-12-31 01:43] VITALS: BP 107/72; PULSE 60; RESP 18; TEMP 98.6
[2018-12-31 01:54] VITALS: O2SAT 99
[2018-12-31] MEDS ORDERED: Amoxicillin-Clav 875-125 mg Tab PO STA (01:55)
[2018-12-31] MEDS ORDERED: Amoxicillin-Clav 875-125 mg Tab PO ONE (02:05)
--- NOTE | 2018-12-31 09:12 | CT ---
Date of service: 12/31/2018 PROCEDURE: CT SINUSES WITHOUT CONTRAST HISTORY: sinus congestion COMPARISON: None available. TECHNIQUE: Contiguous axial CT images of the paranasal sinuses were obtained. Coronal and sagittal reformats were generated. Radiation dose: Total exam DLP = 0.0 mGy-cm. This CT exam was performed using one or more of the following dose reduction techniques: Automated exposure control, adjustment of the mA and/or kV according to patient size, and/or use of iterative reconstruction technique. FINDINGS: FRONTAL SINUSES: The right frontal sinus is aplastic. The left frontal sinus is hypoplastic. No mucosal thickening or fluid. ETHMOID SINUSES: Well developed and well aerated without mucosal thickening or fluid. SPHENOID SINUSES: Well developed and well aerated without mucosal thickening or fluid. MAXILLARY SINUSES: Both maxillary sinuses are well developed. No mucosal thickening or fluid in the right maxillary sinus. There is moderate polypoid mucosal thickening in the left maxillary sinus. SINUS DRAINAGE: Mild narrowing of bilateral ostiomeatal units. The frontoethmoid and sphenoethmoid recesses are patent NASAL SEPTUM: No significant deviation. No destructive lesion. MASS: None. SKULL BASE: Unremarkable. TEMPORAL BONES: Middle ears and mastoid grossly unremarkable. OTHER FINDINGS: None. IMPRESSION: Mild chronic left maxillary sinusitis. No acute sinusitis. A preliminary report was provided by [facility].
--- NOTE | 2018-12-31 09:55 | RAD ---
Date of service: 12/30/2018 HISTORY: Shortness of breath COMPARISON: 12/22/2018 TECHNIQUE: Chest PA and lateral FINDINGS: LUNGS: No focal infiltrate or effusion. Bibasilar breast and nipple shadows. PLEURA: No significant pleural effusion identified. No pneumothorax apparent. CARDIOVASCULAR: No aortic atherosclerotic calcification present. Normal cardiac size. OSSEOUS STRUCTURES: No significant abnormalities. VISUALIZED UPPER ABDOMEN: Normal. OTHER FINDINGS: None. IMPRESSION: No active disease.
--- NOTE | 2019-01-01 21:25 | CARD ---
APPROVED REPORT Date of service: 12/30/2018 EKG Measurement Heart [id number] MT [id number] <Conclusion> Normal sinus rhythm Nonspecific ST and T wave abnormality Abnormal ECG
== END 2018-12-31 02:12 | disposition home or self-care (01) ==
LOC: C.ER 21:37
DX: K21.0 Gastro-esophageal reflux disease with esophagitis (principal); J32.9 Chronic sinusitis, unspecified
CPT/HCPCS: 70486; 71046; 80053; 81001; 83690; 84703; 85025; 85378; 93005; 96374; 99285; C9113; J7030

== ENCOUNTER 2019-01-14 14:25 | Emergency (ER) | payer OTHER ==
[2019-01-14 14:25] VITALS: BMI 23.9
[2019-01-14 14:50] VITALS: BP 122/80; PULSE 88; RESP 18; TEMP 99.3; O2SAT 100
== END 2019-01-14 17:44 | disposition left against medical advice (07) ==
LOC: C.ER 14:25
DX: Z02.89 Encounter for other administrative examinations (principal); M54.5 Low back pain

== ENCOUNTER 2019-02-01 10:05 | Outpatient (CLI) | payer OTHER | END 2019-02-01 10:06 | disposition home or self-care (01) | LOC: C.CTH 10:05 | DX: J01.90 Acute sinusitis, unspecified (principal) ==

== ENCOUNTER 2019-03-07 18:02 | Outpatient (CLI) | payer OTHER | END 2019-03-07 18:03 | disposition home or self-care (01) | LOC: C.RADH 18:02 ==

== ENCOUNTER 2019-03-20 12:05 | Emergency (ER) | payer OTHER ==
[2019-03-20 12:05] VITALS: BMI 23.9
[2019-03-20 12:15] VITALS: BP 116/77; PULSE 61; RESP 18; TEMP 98.9; O2SAT 100
--- NOTE | 2019-03-20 13:12 | C.PDOC ---
History Of Present Illness 29 year old female with a history of anxiety, bipolar disorder, and PTSD presents to the emergency department with complaints of anxiety and sinusitis. Patient states that she is scheduled for a surgery for her sinusitis with Dr. Mayer on 03-26-19. Patient reports feeling "stuffy" on the left side, feeling like her right eye is swollen, and as a result has been feeling anxious. Patient also reports being evaluated by Dr. Rolle who prescribed her Amoxicillin for her sinus. Patient states that she has also been on Amoxicillin in the past as prescribed by Dr. Mayer. Patient reports that her anxiety is associated with her impending surgery. Patient states that her anxiety makes her feel short of breath. Patient reports being evaluated for anxiety at [place] on 03-17-19 where she was treated with Ativan; patient reports taking Vistaril for her anxiety and reports an appointment tomorrow with Dr. Mayer. Chief Complaint (Nursing): ENT Problem History Per: Patient History/Exam Limitations: no limitations Onset/Duration Of Symptoms: Days Current Symptoms Are (Timing): Still Present Suicide/Self Injury Attempted (Context): None Modifying Factor(s): None Associated Symptoms: Anxiety. denies: Suicidal Thoughts, Suicidal Plan Past Medical History Reviewed: Historical Data, Nursing Documentation, Vital Signs Vital Signs: Last Vital Signs Temp 98.9 F 03/20/19 12:10 Pulse 61 03/20/19 12:10 Resp 18 03/20/19 12:10 BP 116/77 03/20/19 12:10 Pulse Ox 100 03/20/19 12:10 Primary Care Provider: Demetrius Rolle - Medical History PMH: Anxiety, Asthma (NO meds), Bipolar Disorder, Depression, Personality Disorder, Post Traumatic Stress Disorder Denies: HIV, HTN, Chronic Kidney Disease, Seizures, Sexually Transmitted Disease Surgical History: No Surg Hx Family History: States: No Known Family Hx - Social History Hx Tobacco Use: Yes Hx Alcohol Use: No Hx Substance Use: No (DENIES 11/21/18) - Immunization History Hx Tetanus Toxoid Vaccination: No Hx Influenza Vaccination: No (2014) Hx Pneumococcal Vaccination: No Review Of Systems Except As Marked, All Systems Reviewed And Found Negative. Constitutional: Negative for: Fever, Chills, Weakness Eyes: Positive for: Other (eye swelling sensation) ENT: Positive for: Nose Congestion (sinus pressure) Cardiovascular: Negative for: Chest Pain Respiratory: Positive for: Shortness of Breath. Negative for: Cough Psych: Positive for: Anxiety Physical Exam - Physical Exam Appears: Non-toxic, No Acute Distress (calm) Skin: Normal Color, Warm, Dry Head: Atraumatic, Normacephalic, No Swelling Eye(s): bilateral: Normal Inspection, PERRL, EOMI Nose: Other (swelling to the turbinates, b/l, left greater than right) Oral Mucosa: Moist Throat: Normal, No Erythema, No Exudate, No Mass Neck: Normal, Supple Chest: Symmetrical, No Tenderness Cardiovascular: Rhythm Regular, No Murmur Respiratory: Normal Breath Sounds, No Rales, No Rhonchi, No Wheezing Gastrointestinal/Abdominal: Soft, No Tenderness, No Guarding, No Rebound Extremity: Normal ROM Neurological/Psych: Oriented x3, Normal Speech, Normal Cognition ED Course And Treatment O2 Sat by Pulse Oximetry: 100 (RA) Pulse Ox Interpretation: Normal Disposition Counseled Patient/Family Regarding: Diagnosis, Need For Followup, Rx Given - Disposition Referrals: Gilles Mayer MD [Staff Provider] - Demetrius Rolle MD [Medical Doctor] - Disposition: HOME/ ROUTINE Disposition Time: 13:10 Condition: STABLE Prescriptions: Lorazepam [Ativan] 0.5 mg PO TID PRN #15 tab PRN Reason: Anxiety Instructions: Anxiety, Adult (DC) Forms: [employer] ([place]), General Discharge Instructions - POA Present On Arrival: None - Clinical Impression Clinical Impression: Anxiety - Scribe Statement The provider has reviewed the documentation as recorded by the Scribe (Horacio Joseph) Provider Attestation: All medical record entries made by the Scribe were at my direction and personally dictated by me. I have reviewed the chart and agree that the record accurately reflects my personal performance of the history, physical exam, medical decision making, and the department course for this patient. I have also personally directed, reviewed, and agree with the discharge instructions and disposition.
== END 2019-03-20 13:16 | disposition home or self-care (01) ==
LOC: C.ER 12:05
DX: F41.9 Anxiety disorder, unspecified (principal)